=== PATIENT | female | born 1935 | race Two or more races ===

== ENCOUNTER 2019-03-04 03:03 | Inpatient (IN) | payer MEDICAID ==
[~2019-03-04] VITALS: Ht 157.5 cm; Wt 55.6 kg
[2019-03-04 05:26] LABS: Basophils # (auto) 0 uL; Basophils % (auto) 1.1 % (0.0-2.0); Eosinophils # (auto) 0.3 uL; Eosinophils % (auto) 7.4 % (0.0-7.0); Hematocrit 45.9 % (36.0-46.0); Hemoglobin 15.5 g/dL (12.2-16.2); Lymphocytes # (auto) 1.3 uL; Lymphocytes % (auto) 31.3 % (10.0-50.0); Mean Corpuscular Hemoglobin 29.6 pg (28.0-32.0); Mean Corpuscular Hgb Conc. 33.7 g/dL (32.0-36.0); Mean Corpuscular Volume 87.9 fL (80.0-100.0); Monocytes # (auto) 0.5 uL; Monocytes % (auto) 12.1 % (0.0-12.0); Neutrophils # (auto) 1.9 uL; Neutrophils % (auto) 48.1 % (37.0-80.0); Nucleated Red Blood Cells % 0.1 %; Platelet Count (auto) 134 10^3/uL (140-450); Red Blood Cells 5.22 10^6/uL (4.0-5.20); Red Cell Distribution Width 13.8 % (11.8-14.3)
[2019-03-04 05:42] LABS: Albumin 3.2 g/dL (3.4-5.0); BUN/Creatinine Ratio 28.8
[2019-03-04 05:46] LABS: Bilirubin, Total 0.8 mg/dL (0.2-1.0); Total Protein 7.8 g/dL (6.4-8.2)
[2019-03-04] MEDS ORDERED: SODIUM CHLORIDE 0.9% 500 ML IVB ONE (07:10)
[2019-03-04] MEDS ORDERED: DEXTROSE (50%) 50ML SYRG IV PRN (09:30)
[2019-03-04] MEDS ORDERED: ONDANSETRON HCL 4 MG/2 ML VIAL IV PRN (09:30)
[2019-03-04] MEDS ORDERED: ACETAMINOPHEN 500 MG TAB PO PRN (09:30)
[2019-03-04] MEDS ORDERED: NITROGLYCERIN 0.4 MG SL TAB SL PRN (09:30)
[2019-03-04] MEDS ORDERED: LABETALOL HCL 5 MG/ML ML 20ML VIAL IV PRN (09:30)
[2019-03-04] MEDS ORDERED: TEMAZEPAM 15 MG CAP PO PRN (09:30)
[2019-03-04] MEDS ORDERED: traMADol HCL 50 MG TAB PO PRN (09:30)
[2019-03-04] MEDS ORDERED: LACTULOSE 20Gm/30ML SOLN PO PRN (09:30)
[2019-03-04] MEDS ORDERED: ENOXAPARIN SOD 40 MG/0.4 ML SYRINGE SC SCH (10:00)
[2019-03-04] MEDS: SODIUM CHLORIDE 0.9% 1,000 ML IV SCH ×2 (10:04→11:56)
[2019-03-04 10:40] LABS: Folate (Folic Acid) 18.26 ng/mL (5.38-24)
--- NOTE | 2019-03-04 10:40 | NUR ---
Telemetry admit from ER IVISLAILA admitted to Telemetry unit with family at bedside, after SBAR received. Patient oriented to Ashley Jones, primary RN, unit, room, bed, and unit policies regarding patient care and visiting hours. Patient now on continuous telemetry monitoring, tele box #65 and telemetry reading on arrival to unit is Afib in the 50's. Patient weighed by bedscale and encouraged to call if they need something. Respirations are even and unlabored on RA. Bed locked in lowest position, side rails up x2, call light within reach. All questions and concerns addressed, patient verbalized understanding.
[2019-03-04 11:20] VITALS: BP 127/57
[2019-03-04] MEDS: InsuLIN REG 1unit/0.01ml Soln (100units/ml) SC SCH ×3 (11:30→21:56)
[2019-03-04] MEDS: ASPirin 81 mg TAB PO SCH (11:56)
[2019-03-04] MEDS: FAMOTIDINE 20 MG TAB PO SCH (11:56)
[2019-03-04] MEDS: ACCU-CHEK COMFORT CURVE STRIP VI SCH ×3 (11:57→21:53)
--- NOTE | 2019-03-04 12:40 | NUR ---
Dr. Donahue at bedside. Discussing plan of care with patient and family.
[2019-03-04] MEDS ORDERED: ASPI-378 PO (12:58)
[2019-03-04] MEDS ORDERED: HYDR25TA4 PO (12:58)
[2019-03-04] MEDS ORDERED: GABA300C10 PO (12:58)
[2019-03-04] MEDS ORDERED: LISI-646 PO (12:58)
[2019-03-04 13:00] VITALS: BP 119/44
--- NOTE | 2019-03-04 13:35 | NUR ---
Patient taken to stress lab for first part of stress test.
--- NOTE | 2019-03-04 14:15 | NUR ---
Patient back from stress lab. No distress noted.
[2019-03-04 17:00] VITALS: BP 112/72
--- NOTE | 2019-03-04 18:42 | NUR ---
Patient rounding Patient escorted to the bathroom and assisted back into bed. No S/S of distress or SOB, no pain noted or reported at this time. Will endorse care to reading recovery teacher RN.
--- NOTE | 2019-03-04 19:30 | NUR ---
Opening Shift Note Assumed care of patient, awake and alert oriented x4. No S/S of distress/SOB or pain noted. Bed is in lowest locked position with bed rails up x2 and call light is within reach of the patient. Instructed on POC and to call for assist PRN.
--- NOTE | 2019-03-04 19:40 | NUR ---
IV insertion Patient going for stress test tomorrow. Asked charge nurse if it was alright to place one iv instead of two since patient already has good 20 guage IV on right wrist. Said it was okay. IV access obtained, via clean sterile technique by inserting 22 gauge catheter at left wrist. IV secured properly. No trauma to site. Patient tolerated well.
--- NOTE | 2019-03-04 21:23 | NUR ---
Angel: Received call from telemetry monitory manufacturing technician that patients heart rate dips down to 42's but goes right back up frequently. Doctor Aida is aware of patients heart rate within 40's to 60's. Patient is asymptomatic, resting in bed with breaths even and unlabored. Addendum: 03/05/19 at 0305 by Danyelle Velasquez RN RN Title: Bradycardia
--- NOTE | 2019-03-04 21:40 | NUR ---
Urinalysis specimen sent. Patient resting in bed with breaths even and unlabored.
[2019-03-04] MEDS: ATORVASTATIN 20 MG TAB PO SCH (21:49)
[2019-03-04] MEDS: ENOXAPARIN SOD 40 MG/0.4 ML SYRINGE SC SCH (21:50)
[2019-03-04 22:00] VITALS: BP 144/61
[2019-03-04 23:50] LABS: Urine Bacteria NONE SEEN /hpf (None Seen); Urine Blood Negative /uL (Negative); Urine Specific Gravity 1.007 (1.001-1.035); Urine WBC 1 /hpf (0 - 5)
[2019-03-05 05:00] VITALS: BP 115/85
[2019-03-05] MEDS: ACCU-CHEK COMFORT CURVE STRIP VI SCH ×4 (06:21→22:00)
[2019-03-05] MEDS: InsuLIN REG 1unit/0.01ml Soln (100units/ml) SC SCH ×4 (06:21→22:00)
[2019-03-05 07:00] LABS: Basophils # (auto) 0.1 uL; Basophils % (auto) 1.4 % (0.0-2.0); Eosinophils # (auto) 0.1 uL; Eosinophils % (auto) 2.1 % (0.0-7.0); Hematocrit 46.9 % (36.0-46.0); Hemoglobin 15.6 g/dL (12.2-16.2); Lymphocytes # (auto) 1.1 uL; Lymphocytes % (auto) 25.8 % (10.0-50.0); Mean Corpuscular Hemoglobin 29.6 pg (28.0-32.0); Mean Corpuscular Hgb Conc. 33.3 g/dL (32.0-36.0); Mean Corpuscular Volume 88.8 fL (80.0-100.0); Monocytes # (auto) 0.4 uL; Monocytes % (auto) 9.7 % (0.0-12.0); Neutrophils # (auto) 2.6 uL; Nucleated Red Blood Cells % 0.1 %; Platelet Count (auto) 144 10^3/uL (140-450); Red Blood Cells 5.28 10^6/uL (4.0-5.20); Red Cell Distribution Width 13.5 % (11.8-14.3); White Blood Cell 4.2 10^3/uL (4.4-10.8)
[2019-03-05 07:12] LABS: Albumin 3.1 g/dL (3.4-5.0); Potassium 3.9 mmol/L (3.5-5.1)
--- NOTE | 2019-03-05 07:15 | NUR ---
Opening Note Report received from NOC RN. Patient observed awake, alert, but not oriented. Korean speaking only, assisted by Charley OLIVEIRA for translation. Patient reminded of POC, NPO, and stress test completion today. Patient nodded and assisted to restroom. Patient back to bed without complications. Call segundo within reach and notified to call for assistance. Bed alarm on to prevent fall.
[2019-03-05 07:17] LABS: BUN/Creatinine Ratio 24.2; Total Protein 7.4 g/dL (6.4-8.2)
[2019-03-05] MEDS ORDERED: ADENOSINE 45 MG in GIVE UN-DILUTED 0 ML IV STA (08:24)
[2019-03-05 09:00] VITALS: BP 138/65
[2019-03-05] MEDS: FAMOTIDINE 20 MG TAB PO SCH (09:31)
[2019-03-05] MEDS: ASPirin 81 mg TAB PO SCH (09:31)
[2019-03-05] MEDS: ENOXAPARIN SOD 40 MG/0.4 ML SYRINGE SC SCH ×2 (09:31→21:10)
--- NOTE | 2019-03-05 10:20 | NUR ---
Transported to Stress Test Patient taken to nuclear medicine by wheelchair, no signs or symptoms of distress at this time.
--- NOTE | 2019-03-05 10:59 | NUR ---
Back to room Patient back to room from stress test, no current S/S of distress noted.
[2019-03-05] MEDS: SODIUM CHLORIDE 0.9% 1,000 ML IV SCH ×2 (11:49→22:47)
[2019-03-05 13:00] VITALS: BP 132/60
--- NOTE | 2019-03-05 15:30 | NUR ---
IV pulled Patient pulled IV out of left wrist while daughter at bedside. IV site already stopped bleeding and IV sitting on bedside table with tip intact. Patient's wrist cleaned up and notified daughter to let patient know she should not touch her IV lines. If she has concerns about them, let staff know. Daughter concerned about new onset confusion, to be notified.
--- NOTE | 2019-03-05 16:30 | NUR ---
Rounded Dr. West rounded on patient and discussed that we are still awaiting stress test report from cardiology. Patient's daughter concerned about new onset confusion. MD ordering CT head and neurology consult. MD stated her afib has changed back to normal sinus rhythm and to obtain EKG to confirm. EKG obtained and shown to MD.
--- NOTE | 2019-03-05 19:28 | NUR ---
Closing Note Report given to NOC RN, patient currently without S/S of distress. Sitter at bedside. Caregiver visiting stated patient has been confused at home lately, this is not a new onset.
[2019-03-05 21:06] VITALS: BP 139/62
[2019-03-05] MEDS: ATORVASTATIN 20 MG TAB PO SCH (21:10)
[2019-03-06 04:11] VITALS: BP 148/76
[2019-03-06] MEDS: ACCU-CHEK COMFORT CURVE STRIP VI SCH ×4 (07:00→21:24)
[2019-03-06] MEDS: InsuLIN REG 1unit/0.01ml Soln (100units/ml) SC SCH ×4 (07:00→21:24)
--- NOTE | 2019-03-06 08:15 | NUR ---
Opening Note Assumed care of patient, she is A & O x 2, patient does not know the time or why she is here. POC discussed with patient. Cooperative and comfortable at this time. Patient states that she has some pain in her left foot, but does not want pain medications, will try a warm pack for patient. Bed is in low, locked position, call light within reach. Sitter at bedside. She ambulates with a walker and minimum assistance.
[2019-03-06 08:58] VITALS: BP 147/84
--- NOTE | 2019-03-06 09:45 | NUR ---
Patient family at bedside.
[2019-03-06] MEDS: ASPirin 81 mg TAB PO SCH (10:12)
[2019-03-06] MEDS: FAMOTIDINE 20 MG TAB PO SCH (10:12)
[2019-03-06] MEDS: ENOXAPARIN SOD 40 MG/0.4 ML SYRINGE SC SCH ×2 (10:13→21:23)
[2019-03-06] MEDS: SODIUM CHLORIDE 0.9% 1,000 ML IV SCH (11:54)
--- NOTE | 2019-03-06 12:21 | NUR ---
Dr. Bustillo at bedside. Would like EKG, Angiogram Friday. Dr. Bustillo called daughter Rahel to notify of the angiogram to take place Friday. Will follow through with orders per Dr. Bustillo. Will continue to monitor patient.
[2019-03-06 12:56] VITALS: BP 149/76
--- NOTE | 2019-03-06 13:55 | NUR ---
Follow-up EKG done and placed in patient chart as requested by Dr. Bustillo.
--- NOTE | 2019-03-06 14:53 | NUR ---
Report given to ELENI Tracy Patient transferred to Room 218B with all belongings. Family, Rahel, informed of transfer. No s/s of distress at time of transfer.
--- NOTE | 2019-03-06 15:00 | NUR ---
Transferred To 218B Patient transferred to room 218B. Received report from ELENI He. Patient lying in bed, shows no signs of distress at this time. Bed in lowest locked position, side rails up x2 and call light within reach. Sitter present at bedside. Will continue to monitor.
[2019-03-06 17:00] VITALS: BP 147/83
--- NOTE | 2019-03-06 19:03 | NUR ---
Closing Note Patient lying in bed, shows no signs of distress at this time. Care endorsed to NOC nurse.
--- NOTE | 2019-03-06 19:57 | NUR ---
Opening Shift Note Assumed care of patient, awake and alert. No S/S of distress/SOB or pain. Instructed on POC and to call for assist PRN, will continue to monitor for changes Q1hr and PRN.
[2019-03-06] MEDS: ATORVASTATIN 20 MG TAB PO SCH (21:23)
[2019-03-06 22:00] VITALS: BP 146/75
[2019-03-07] MEDS: SODIUM CHLORIDE 0.9% 1,000 ML IV SCH ×2 (01:39→16:47)
[2019-03-07 05:00] VITALS: BP 133/74
[2019-03-07] MEDS: ACCU-CHEK COMFORT CURVE STRIP VI SCH ×4 (06:24→22:02)
[2019-03-07] MEDS: InsuLIN REG 1unit/0.01ml Soln (100units/ml) SC SCH ×4 (06:24→22:00)
--- NOTE | 2019-03-07 07:16 | NUR ---
Report given to Shae Tracy, patient is resting no distress, sitter at bedside.
--- NOTE | 2019-03-07 07:20 | NUR ---
Open Shift Note Received report on patient, awake and sitting on side of bed. Patient shows no signs of distress at this time. Patient is aware of self, place and situation. Patient able to recall speaking with doctor yesterday about angiogram tomorrow. Discussed rest of POC with patient. Bed in lowest locked position, side rails up x2 and call light within reach. Sitter present at bedside. Will continue to monitor.
[2019-03-07 09:00] VITALS: BP 149/85
[2019-03-07] MEDS: ENOXAPARIN SOD 40 MG/0.4 ML SYRINGE SC SCH ×2 (10:05→22:02)
[2019-03-07] MEDS: ASPirin 81 mg TAB PO SCH (10:05)
[2019-03-07] MEDS: FAMOTIDINE 20 MG TAB PO SCH (10:05)
[2019-03-07 13:00] VITALS: BP 147/80
--- NOTE | 2019-03-07 15:24 | NUR ---
Nutrition Assessment Notes Please see attached link for complete assessment Est. Needs BW [id number] kcal (25-30 kcal/kgBW), 50-62 gms pro (1.0-1.2 gms/kgBW). Will continue to monitor pertinent labs and reassess nutrient need prn Addendum: 03/07/19 at [address] Amended: Links added.
[2019-03-07 17:04] VITALS: BP 149/72
[2019-03-07] MEDS ORDERED: LORazepam 2MG/ML-1ML VIAL IV PRN (17:15)
--- NOTE | 2019-03-07 18:55 | NUR ---
Closing Note Patient sitting up in bed, shows no signs of distress at this time. Bed in lowest locked position, side rails up x2 and call light within reach.
--- NOTE | 2019-03-07 19:20 | NUR ---
OPENING SHIFT NOTE Assumed care of patient who is awake, a&Ox3. Currently on room air with no s/s of SOB or distress. Denies pain at this time. Patient is ambulatory with the use of a standard walker and moderate assist. Bed is in low locked position with side rails up x2. Call light is within reach and sitter is at bedside for safety. Patient will be NPO after midnight for left heart cath tomorrow with Dr. Bustillo. Will continue to monitor for changes PRN.
--- NOTE | 2019-03-07 20:10 | NUR ---
Received call from [employer] [facility] reporting bradycardia at 37bpm. Patient is asymptomatic and HR has returned to 55. LA lead replaced. Will continue to monitor.
[2019-03-07] MEDS: ATORVASTATIN 20 MG TAB PO SCH (22:02)
--- NOTE | 2019-03-08 02:25 | NUR ---
PATIENT TRANSFERRED TO ROOM 285B FROM 218B. PATIENT IS ASLEEP. SITTER PRESENT IN ROOM. WILL CONTINUE TO MONITOR.
[2019-03-08] MEDS: SODIUM CHLORIDE 0.9% 1,000 ML IV SCH ×2 (04:22→13:17)
[2019-03-08 04:58] VITALS: BP 156/74
[2019-03-08 06:42] LABS: INR 0.99 (0.9-1.15); Partial Thromboplastin Time 31.3 sec (23.64-32.05)
[2019-03-08] MEDS: ASPirin 81 mg TAB PO SCH ×2 (06:48→09:52)
[2019-03-08] MEDS: InsuLIN REG 1unit/0.01ml Soln (100units/ml) SC SCH ×3 (06:48→17:00)
[2019-03-08] MEDS: ACCU-CHEK COMFORT CURVE STRIP VI SCH ×3 (06:49→17:24)
[2019-03-08 08:00] VITALS: BP 156/74
[2019-03-08] MEDS ORDERED: IODIXANOL 320MG/ML 100ML BTL IV ONE (08:57)
[2019-03-08] MEDS ORDERED: LIDOCAINE 2%HCL (LOCAL ANESTH.) INJ 20ML MDV ONE (08:57)
[2019-03-08] MEDS: ENOXAPARIN SOD 40 MG/0.4 ML SYRINGE SC SCH (09:53)
[2019-03-08] MEDS: FAMOTIDINE 20 MG TAB PO SCH (09:53)
[2019-03-08] MEDS ORDERED: ANGIOMAX 250 MG VIAL IV ONE ×2 (09:59→11:05)
[2019-03-08] MEDS ORDERED: MIDAZOLAM HCL 1MG/1ML-2 ML VIAL ONE (09:59)
[2019-03-08] MEDS ORDERED: fentaNYL CITRATE 100 MCG/2 ML VL ONE (09:59)
[2019-03-08] MEDS ORDERED: SODIUM CHL 0.9% 0 ML ONE (10:00)
[2019-03-08] MEDS ORDERED: HEPARIN 1,000 UNITS/ml 1ML VIAL ONE (10:37)
[2019-03-08] MEDS ORDERED: VERAPAMIL 2.5MG/ML INJ 2ML VIAL IV ONE (10:37)
[2019-03-08] MEDS ORDERED: NITROGLYCERIN 5MG/ML 10ML VIAL IV ONE (10:38)
[2019-03-08] MEDS ORDERED: HEPARIN SODIUM (PORCINE) 5000 UNITS/ML 1ML VIAL ONE (10:53)
[2019-03-08 12:15] VITALS: BP 140/62
--- NOTE | 2019-03-08 14:55 | NUR ---
ELECTROENCEPHALOGRAM COMPLETED AT BEDSIDE. ELENI CLAUDIO NOTIFIED.
[2019-03-08 18:29] VITALS: BP 140/62
--- NOTE | 2019-03-08 18:54 | NUR ---
PATIENT DISCHARGED HOME WITH FAMILY. ALL IV ACCESS DISCONTINUED. TELEMETRY REMOVED AND RETURNED TO TELEMETRY DEPARTMENT. ALL DISCHARGE INSTRUCTIONS GIVEN. ALL DISCHARGE PAPERWORK SIGNED.
--- NOTE | 2019-03-09 10:24 | NUR ---
assessment Patient discharged home prior to assessment. Addendum: 03/09/19 at 1425 by Violeta SALGADO Amended: Links added.
== END 2019-03-08 19:00 | disposition home or self-care (01) | DRG 192 ==
LOC: EDBD 03:03 → ER 03:07 → TELE-WESTW 03:08 → TELE-CENTR 03-06 16:07 → TELE-WESTW 03-08 01:59
PROVIDERS: ADMIT Internal Medicine; ATTEND Internal Medicine Pulmonary Disease
PROC: 4A023N7 Measurement of Cardiac Sampling and Pressure, Left Heart, Percutaneous Approach (ICD-10-PCS; principal; 2019-03-08)
PROC: B2111ZZ Fluoroscopy of Multiple Coronary Arteries using Low Osmolar Contrast (ICD-10-PCS; 2019-03-08)
PROC: B2151ZZ Fluoroscopy of Left Heart using Low Osmolar Contrast (ICD-10-PCS; 2019-03-08)
DX: R00.1 Bradycardia, unspecified (principal); I21.A1 Myocardial infarction type 2; G93.41 Metabolic encephalopathy; D69.6 Thrombocytopenia, unspecified; E11.9 Type 2 diabetes mellitus without complications; I48.91 Unspecified atrial fibrillation; I10 Essential (primary) hypertension; F03.90 Unspecified dementia, unspecified severity, without behavioral disturbance, psychotic disturbance, mood disturbance, and anxiety; I35.1 Nonrheumatic aortic (valve) insufficiency; Z83.3 Family history of diabetes mellitus; Z90.49 Acquired absence of other specified parts of digestive tract; Z88.5 Allergy status to narcotic agent
CPT/HCPCS: 36415; 70450; 70551; 71045; 74176; 78452; 80053; 81001; 82550; 82607; 82746; 82962; 83036; 83605; 83690; 83880; 84443; 84484; 85025; 85610; 85652; 85730; 87040; 93005; 93017; 93306; 93458; 95819; 99152; G0378; J0153; J1815; J2250; J3490; Q9967

== ENCOUNTER 2019-11-23 01:53 | Emergency (ER) | payer MEDICAID ==
[~2019-11-23] VITALS: Ht 152.4 cm; Wt 70.3 kg
[~2019-11-23 01:53] MED LIST: ASPI-378 PO; GABA300C10 PO; HYDR25TA4 PO; LISI-646 PO
[2019-11-23] MEDS ORDERED: LORazepam 0.5 MG TAB PO ONE (02:30)
[2019-11-23 02:52] LABS: Basophils # (auto) 0 10 ^3/uL (0-0.2); Basophils % (auto) 0.9 % (0.0-2.0); Eosinophils # (auto) 0.2 10 ^3/uL (0-0.8); Eosinophils % (auto) 4.5 % (0.0-7.0); Hematocrit 47.3 % (36.0-46.0); Hemoglobin 15.6 g/dL (12.2-16.2); Lymphocytes % (auto) 23.8 % (10.0-50.0); Mean Corpuscular Hemoglobin 29.3 pg (28.0-32.0); Mean Corpuscular Volume 88.8 fL (80.0-100.0); Monocytes # (auto) 0.4 10 ^3/uL (0-1.3); Monocytes % (auto) 9.6 % (0.0-12.0); Neutrophils # (auto) 2.5 10 ^3/uL (1.6-8.6); Neutrophils % (auto) 61.2 % (37.0-80.0); Nucleated Red Blood Cells % 0.6 %; Platelet Count (auto) 136 10^3/uL (140-450); Red Blood Cells 5.33 10^6/uL (4.0-5.20); Red Cell Distribution Width 13.6 % (11.8-14.3); White Blood Cell 4.1 10^3/uL (4.4-10.8)
[2019-11-23 03:07] LABS: Urine Bacteria NONE SEEN /hpf (None Seen); Urine Blood Negative /uL (Negative); Urine Specific Gravity 1.005 (1.001-1.035); Urine WBC <1 /hpf (0 - 5)
[2019-11-23 03:12] LABS: Albumin 3.4 g/dL (3.4-5.0); BUN/Creatinine Ratio 33.3; Calcium 8.9 mg/dL (8.5-10.1); Potassium 3.9 mmol/L (3.5-5.1)
[2019-11-23 03:15] LABS: Bilirubin, Total 0.8 mg/dL (0.2-1.0); Total Protein 8.1 g/dL (6.4-8.2)
[2019-11-23 04:47] VITALS: BP 167/67
== END 2019-11-23 04:55 | disposition home or self-care (01) ==
LOC: EDBD 01:53 → ER 01:53
DX: G47.00 Insomnia, unspecified (principal); I10 Essential (primary) hypertension; E11.9 Type 2 diabetes mellitus without complications
CPT/HCPCS: 36415; 71045; 80053; 81001; 85025; 93005

== ENCOUNTER 2020-08-31 03:11 | Inpatient (IN) | payer MEDICAID ==
[~2020-08-31] VITALS: Ht 152.4 cm; Wt 50.9 kg
[2020-08-31 06:49] LABS: Basophils # (auto) 0 10 ^3/uL (0-0.2); Basophils % (auto) 0.9 % (0.0-2.0); Eosinophils # (auto) 0.1 10 ^3/uL (0-0.8); Eosinophils % (auto) 4.5 % (0.0-7.0); Hematocrit 40.9 % (36.0-46.0); Lymphocytes # (auto) 0.8 10 ^3/uL (0.4-5.4); Mean Corpuscular Hemoglobin 30.8 pg (28.0-32.0); Mean Corpuscular Hgb Conc. 34.3 g/dL (32.0-36.0); Mean Corpuscular Volume 89.8 fL (80.0-100.0); Monocytes # (auto) 0.4 10 ^3/uL (0-1.3); Monocytes % (auto) 12.1 % (0.0-12.0); Neutrophils # (auto) 1.8 10 ^3/uL (1.6-8.6); Neutrophils % (auto) 57.5 % (37.0-80.0); Nucleated Red Blood Cells % 0.2 %; Platelet Count (auto) 118 10^3/uL (140-450); Red Blood Cells 4.55 10^6/uL (4.0-5.20); White Blood Cell 3.1 10^3/uL (4.4-10.8)
[2020-08-31 07:03] LABS: Albumin 3.1 g/dL (3.4-5.0); BUN/Creatinine Ratio 38.3; Calcium 8.6 mg/dL (8.5-10.1); Potassium 3.6 mmol/L (3.5-5.1)
[2020-08-31 07:11] LABS: Bilirubin, Total 0.7 mg/dL (0.2-1.0); Total Protein 7.2 g/dL (6.4-8.2)
[2020-08-31] MEDS ORDERED: hydrALAZINE HCL 20 MG/ML VL IV PRN (09:30)
[2020-08-31] MEDS ORDERED: ASPirin 81 mg TAB PO ONE (09:30)
[2020-08-31] MEDS ORDERED: ONDANSETRON HCL 4 MG/2 ML VIAL IV PRN (09:30)
[2020-08-31] MEDS ORDERED: ACETAMINOPHEN 500 MG TAB PO PRN (09:30)
[2020-08-31] MEDS ORDERED: DEXTROSE (50%) 50ML SYRG IV PRN (09:30)
[2020-08-31] MEDS ORDERED: HYDROcodone-ACET 5/325MG TAB PO PRN (09:30)
[2020-08-31] MEDS ORDERED: NITROGLYCERIN 0.4 MG SL TAB SL PRN (09:30)
[2020-08-31] MEDS ORDERED: FAMOTIDINE 20 MG TAB PO SCH (10:00)
[2020-08-31] MEDS ORDERED: ASPirin-EC 81 mg tab PO SCH (10:00)
[2020-08-31] MEDS: DOCUSATE SOD 100 MG CAP PO SCH ×2 (10:13→21:34)
[2020-08-31] MEDS: LISINOPRIL 10 MG TAB PO SCH (10:13)
[2020-08-31] MEDS: FAMOTIDINE 20 MG TAB PO SCH (10:13)
[2020-08-31] MEDS: InsuLIN REG 1unit/0.01ml Soln (100units/ml) SC SCH ×3 (11:30→21:34)
[2020-08-31] MEDS: ACCU-CHEK COMFORT CURVE STRIP VI SCH ×3 (11:46→21:34)
[2020-08-31 11:48] VITALS: BP 139/68
[2020-08-31 12:55] VITALS: BP 131/59
[2020-08-31 17:00] VITALS: BP 149/72
[2020-08-31] MEDS: ATORVASTATIN 20 MG TAB PO SCH (21:34)
[2020-08-31 21:40] LABS: Urine Bacteria NONE SEEN /hpf (None Seen); Urine Blood Negative /uL (Negative); Urine Specific Gravity 1.013 (1.001-1.035); Urine WBC 1 /hpf (0 - 5)
[2020-08-31 22:00] VITALS: BP 135/75
[2020-08-31 23:30] VITALS: BP 144/77
[2020-09-01 05:00] VITALS: BP 135/92
[2020-09-01] MEDS: InsuLIN REG 1unit/0.01ml Soln (100units/ml) SC SCH ×4 (06:26→22:36)
[2020-09-01] MEDS: ACCU-CHEK COMFORT CURVE STRIP VI SCH ×4 (06:27→22:35)
[2020-09-01 07:03] LABS: Calcium 8.5 mg/dL (8.5-10.1); Potassium 3.7 mmol/L (3.5-5.1)
[2020-09-01 07:19] LABS: INR 1.03 (0.9-1.15); Partial Thromboplastin Time 28.3 sec (23.0-31.2)
[2020-09-01 07:28] LABS: Basophils # (auto) 0 10 ^3/uL (0-0.2); Basophils % (auto) 0.6 % (0.0-2.0); Eosinophils # (auto) 0 10 ^3/uL (0-0.8); Eosinophils % (auto) 0.8 % (0.0-7.0); Lymphocytes # (auto) 0.7 10 ^3/uL (0.4-5.4); Lymphocytes % (auto) 13.6 % (10.0-50.0); Mean Corpuscular Hemoglobin 30.5 pg (28.0-32.0); Mean Corpuscular Hgb Conc. 34.2 g/dL (32.0-36.0); Mean Corpuscular Volume 89.3 fL (80.0-100.0); Monocytes # (auto) 0.5 10 ^3/uL (0-1.3); Monocytes % (auto) 8.7 % (0.0-12.0); Neutrophils # (auto) 4.2 10 ^3/uL (1.6-8.6); Neutrophils % (auto) 76.3 % (37.0-80.0); Nucleated Red Blood Cells % 0.5 %; Platelet Count (auto) 155 10^3/uL (140-450); Red Blood Cells 4.92 10^6/uL (4.0-5.20); Red Cell Distribution Width 12.6 % (11.8-14.3); White Blood Cell 5.4 10^3/uL (4.4-10.8)
[2020-09-01 09:00] VITALS: BP 146/77
[2020-09-01] MEDS: ASPirin-EC 81 mg tab PO SCH (09:31)
[2020-09-01] MEDS: DOCUSATE SOD 100 MG CAP PO SCH ×2 (09:31→22:37)
[2020-09-01] MEDS: FAMOTIDINE 20 MG TAB PO SCH (09:31)
[2020-09-01] MEDS: LISINOPRIL 10 MG TAB PO SCH (09:32)
[2020-09-01] MEDS ORDERED: FAMOTIDINE 20 MG TAB PO SCH (10:00)
[2020-09-01 13:00] VITALS: BP 147/97
[2020-09-01 17:00] VITALS: BP 174/70
[2020-09-01 18:50] VITALS: BP 148/72
[2020-09-01 22:23] VITALS: BP 115/56
[2020-09-01] MEDS: ATORVASTATIN 20 MG TAB PO SCH (22:37)
[2020-09-02 05:05] VITALS: BP 113/50
[2020-09-02] MEDS: InsuLIN REG 1unit/0.01ml Soln (100units/ml) SC SCH ×4 (06:38→21:40)
[2020-09-02] MEDS: ACCU-CHEK COMFORT CURVE STRIP VI SCH ×4 (06:38→21:40)
[2020-09-02 08:22] VITALS: BP 120/65
[2020-09-02] MEDS: DOCUSATE SOD 100 MG CAP PO SCH ×2 (09:47→22:00)
[2020-09-02] MEDS: ASPirin-EC 81 mg tab PO SCH (09:47)
[2020-09-02] MEDS: FAMOTIDINE 20 MG TAB PO SCH (09:48)
[2020-09-02] MEDS: LISINOPRIL 10 MG TAB PO SCH (09:48)
[2020-09-02 12:57] VITALS: BP 134/66
[2020-09-02 21:14] VITALS: BP 139/75
[2020-09-02] MEDS: ATORVASTATIN 20 MG TAB PO SCH (22:00)
[2020-09-03 05:16] VITALS: BP 128/60
[2020-09-03] MEDS: ACCU-CHEK COMFORT CURVE STRIP VI SCH ×4 (06:24→21:18)
[2020-09-03] MEDS: InsuLIN REG 1unit/0.01ml Soln (100units/ml) SC SCH ×4 (06:25→21:18)
[2020-09-03 09:00] VITALS: BP 125/78
[2020-09-03] MEDS: ASPirin-EC 81 mg tab PO SCH (10:00)
[2020-09-03] MEDS: FAMOTIDINE 20 MG TAB PO SCH (10:00)
[2020-09-03] MEDS: DOCUSATE SOD 100 MG CAP PO SCH ×2 (10:00→21:19)
[2020-09-03] MEDS: LISINOPRIL 10 MG TAB PO SCH (10:00)
[2020-09-03 13:00] VITALS: BP 127/70
[2020-09-03 17:00] VITALS: BP 131/74
[2020-09-03] MEDS: ATORVASTATIN 20 MG TAB PO SCH (21:19)
[2020-09-03 22:00] VITALS: BP 121/68
[2020-09-04 05:00] VITALS: BP 143/61
[2020-09-04] MEDS: ACCU-CHEK COMFORT CURVE STRIP VI SCH ×4 (05:50→21:03)
[2020-09-04] MEDS: InsuLIN REG 1unit/0.01ml Soln (100units/ml) SC SCH ×4 (05:50→21:02)
[2020-09-04 09:00] VITALS: BP 122/77
[2020-09-04] MEDS: ASPirin-EC 81 mg tab PO SCH (09:15)
[2020-09-04] MEDS: FAMOTIDINE 20 MG TAB PO SCH (09:15)
[2020-09-04] MEDS: DOCUSATE SOD 100 MG CAP PO SCH ×2 (09:16→21:02)
[2020-09-04] MEDS: LISINOPRIL 10 MG TAB PO SCH (09:16)
[2020-09-04 12:36] VITALS: BP 136/92
[2020-09-04 16:49] VITALS: BP 148/87
[2020-09-04] MEDS: ATORVASTATIN 20 MG TAB PO SCH (21:03)
[2020-09-04 22:00] VITALS: BP 133/70
[2020-09-05 05:00] VITALS: BP 132/63
[2020-09-05] MEDS: ACCU-CHEK COMFORT CURVE STRIP VI SCH ×2 (05:40→11:30)
[2020-09-05] MEDS: InsuLIN REG 1unit/0.01ml Soln (100units/ml) SC SCH ×2 (05:40→11:30)
[2020-09-05 08:41] VITALS: BP 128/76
[2020-09-05] MEDS: ASPirin-EC 81 mg tab PO SCH (09:20)
[2020-09-05] MEDS: FAMOTIDINE 20 MG TAB PO SCH (09:21)
[2020-09-05] MEDS: DOCUSATE SOD 100 MG CAP PO SCH (09:21)
[2020-09-05] MEDS: LISINOPRIL 10 MG TAB PO SCH (09:21)
[2020-09-05 11:54] VITALS: BP 128/76
[2020-09-05 12:21] VITALS: BP 152/81
== END 2020-09-05 13:36 | disposition home or self-care (01) | DRG 190 ==
LOC: EDBD 03:11 → ER 03:13 → TELE 03:14 → TELE-CENTR 10:43 → TELE-WESTW 21:46
PROVIDERS: ADMIT Nurse Practitioner Acute Care; ATTEND Family Medicine
DX: I21.4 Non-ST elevation (NSTEMI) myocardial infarction (principal); D69.6 Thrombocytopenia, unspecified; E44.1 Mild protein-calorie malnutrition; I48.0 Paroxysmal atrial fibrillation; E11.9 Type 2 diabetes mellitus without complications; D72.819 Decreased white blood cell count, unspecified; R00.1 Bradycardia, unspecified; I35.1 Nonrheumatic aortic (valve) insufficiency; Z20.822 Contact with and (suspected) exposure to COVID-19; I44.0 Atrioventricular block, first degree; I10 Essential (primary) hypertension; E78.00 Pure hypercholesterolemia, unspecified; Z79.84 Long term (current) use of oral hypoglycemic drugs; Z88.5 Allergy status to narcotic agent
CPT/HCPCS: 36415; 70450; 71045; 80048; 80053; 81001; 82962; 83036; 84484; 85025; 85610; 85730; 86141; 87426; 93005; 93017; 93306; 99291; G0378; J1815; J2405

== ENCOUNTER 2020-09-12 16:25 | Inpatient (IN) | payer MEDICAID ==
[~2020-09-12] VITALS: Ht 165.1 cm; Wt 48.2 kg
[~2020-09-12 16:25] MED LIST changes: -LISI-646 PO; +LISI20TA28 PO
[2020-09-12 17:24] LABS: Basophils # (auto) 0 10 ^3/uL (0-0.2); Basophils % (auto) 0.8 % (0.0-2.0); Eosinophils # (auto) 0.2 10 ^3/uL (0-0.8); Eosinophils % (auto) 3.6 % (0.0-7.0); Hematocrit 45.2 % (36.0-46.0); Hemoglobin 15.1 g/dL (12.2-16.2); Mean Corpuscular Hemoglobin 30.3 pg (28.0-32.0); Mean Corpuscular Hgb Conc. 33.3 g/dL (32.0-36.0); Monocytes # (auto) 0.5 10 ^3/uL (0-1.3); Monocytes % (auto) 10.2 % (0.0-12.0); Neutrophils # (auto) 3.5 10 ^3/uL (1.6-8.6); Neutrophils % (auto) 66.4 % (37.0-80.0); Nucleated Red Blood Cells % 0.1 %; Platelet Count (auto) 162 10^3/uL (140-450); Red Blood Cells 4.97 10^6/uL (4.0-5.20); Red Cell Distribution Width 13.1 % (11.8-14.3); White Blood Cell 5.3 10^3/uL (4.4-10.8)
[2020-09-12 17:28] LABS: Urine Bacteria NONE SEEN /hpf (None Seen); Urine Blood Negative /uL (Negative); Urine Specific Gravity 1.021 (1.001-1.035); Urine WBC <1 /hpf (0 - 5)
[2020-09-12 17:46] LABS: Albumin 3.2 g/dL (3.4-5.0); BUN/Creatinine Ratio 45.6; Calcium 9.1 mg/dL (8.5-10.1); Magnesium 2.1 mg/dL (1.6-2.6)
[2020-09-12 17:50] LABS: Bilirubin, Total 0.4 mg/dL (0.2-1.0); Total Protein 7.9 g/dL (6.4-8.2)
[2020-09-12] MEDS ORDERED: ALBUTEROL SULF 2.5 MG/0.5ML(0.5%) NEB SOLN NEB PRN (21:00)
[2020-09-12] MEDS ORDERED: DEXTROSE (50%) 50ML SYRG IV PRN (21:00)
[2020-09-12] MEDS ORDERED: MORPHINE SULF INJ 2 MG/ML SYRINGE 1ML IV PRN (21:00)
[2020-09-12] MEDS ORDERED: ACETAMINOPHEN 325 MG TAB PO PRN (21:00)
[2020-09-12] MEDS ORDERED: ONDANSETRON HCL 4 MG/2 ML VIAL IV PRN (21:00)
[2020-09-12] MEDS ORDERED: NITROGLYCERIN 0.4 MG SL TAB SL PRN (21:00)
[2020-09-12] MEDS ORDERED: IOHEXOL 350 MG/ML 100ML IJ ONE (21:19)
[2020-09-12 21:21] VITALS: BP 123/56
[2020-09-12] MEDS ORDERED: TEMAZEPAM 15 MG CAP PO PRN (22:00)
[2020-09-12] MEDS: ATORVASTATIN 20 MG TAB PO SCH (22:46)
[2020-09-12] MEDS: GABAPENTIN 300 MG CAP PO SCH (22:47)
[2020-09-12] MEDS: ACCU-CHEK COMFORT CURVE STRIP VI SCH (22:47)
[2020-09-12] MEDS: InsuLIN REG 1unit/0.01ml Soln (100units/ml) SC SCH (22:47)
[2020-09-12] MEDS: ENOXAPARIN SOD 40 MG/0.4 ML SYRINGE SC SCH (22:47)
[2020-09-12 23:50] VITALS: BP 146/58
[2020-09-13 00:16] VITALS: BP 146/58
[2020-09-13 05:00] VITALS: BP 105/52
[2020-09-13] MEDS: InsuLIN REG 1unit/0.01ml Soln (100units/ml) SC SCH ×4 (06:00→22:00)
[2020-09-13] MEDS: ACCU-CHEK COMFORT CURVE STRIP VI SCH ×4 (06:00→21:51)
[2020-09-13 06:01] LABS: Basophils # (auto) 0 10 ^3/uL (0-0.2); Basophils % (auto) 0.9 % (0.0-2.0); Eosinophils # (auto) 0.2 10 ^3/uL (0-0.8); Eosinophils % (auto) 5.6 % (0.0-7.0); Hematocrit 41.1 % (36.0-46.0); Hemoglobin 13.9 g/dL (12.2-16.2); Lymphocytes # (auto) 0.9 10 ^3/uL (0.4-5.4); Lymphocytes % (auto) 21.5 % (10.0-50.0); Mean Corpuscular Hemoglobin 30.5 pg (28.0-32.0); Mean Corpuscular Hgb Conc. 33.8 g/dL (32.0-36.0); Mean Corpuscular Volume 90.3 fL (80.0-100.0); Monocytes # (auto) 0.6 10 ^3/uL (0-1.3); Monocytes % (auto) 12.8 % (0.0-12.0); Neutrophils # (auto) 2.6 10 ^3/uL (1.6-8.6); Neutrophils % (auto) 59.2 % (37.0-80.0); Nucleated Red Blood Cells % 0.1 %; Platelet Count (auto) 136 10^3/uL (140-450); Red Blood Cells 4.55 10^6/uL (4.0-5.20); Red Cell Distribution Width 13.1 % (11.8-14.3); White Blood Cell 4.4 10^3/uL (4.4-10.8)
[2020-09-13 06:16] LABS: Albumin 2.7 g/dL (3.4-5.0); Calcium 8.5 mg/dL (8.5-10.1); Potassium 3.9 mmol/L (3.5-5.1)
[2020-09-13 06:21] LABS: BUN/Creatinine Ratio 50.9; Bilirubin, Total 0.6 mg/dL (0.2-1.0); Total Protein 6.5 g/dL (6.4-8.2)
[2020-09-13 09:00] VITALS: BP 127/62
[2020-09-13] MEDS: HCTZ 25 MG TAB PO SCH (10:54)
[2020-09-13] MEDS: GABAPENTIN 300 MG CAP PO SCH ×2 (10:54→21:51)
[2020-09-13] MEDS: ASPirin 81 mg TAB PO SCH (10:54)
[2020-09-13] MEDS: LISINOPRIL 10 MG TAB PO SCH (10:55)
[2020-09-13] MEDS: FAMOTIDINE 20 MG TAB PO SCH (10:55)
[2020-09-13 13:00] VITALS: BP 100/61
[2020-09-13] MEDS ORDERED: [UNRECOGNIZED DRUG - CODE] PO (18:38)
[2020-09-13] MEDS: ENOXAPARIN SOD 40 MG/0.4 ML SYRINGE SC SCH (21:51)
[2020-09-13] MEDS: ATORVASTATIN 20 MG TAB PO SCH (21:51)
[2020-09-13 22:00] VITALS: BP 140/68
[2020-09-14 05:00] VITALS: BP 136/65
[2020-09-14] MEDS: InsuLIN REG 1unit/0.01ml Soln (100units/ml) SC SCH ×2 (06:11→11:30)
[2020-09-14] MEDS: ACCU-CHEK COMFORT CURVE STRIP VI SCH ×2 (06:12→11:38)
[2020-09-14 09:00] VITALS: BP 108/51
[2020-09-14] MEDS: LISINOPRIL 10 MG TAB PO SCH (10:00)
[2020-09-14] MEDS: HCTZ 25 MG TAB PO SCH (10:00)
[2020-09-14 10:48] VITALS: BP 108/57
[2020-09-14] MEDS: GABAPENTIN 300 MG CAP PO SCH (11:17)
[2020-09-14] MEDS: ASPirin 81 mg TAB PO SCH (11:17)
[2020-09-14] MEDS: FAMOTIDINE 20 MG TAB PO SCH (11:17)
== END 2020-09-14 14:30 | disposition home or self-care (01) | DRG 190 ==
LOC: ER 16:25 → TELE 20:54 → TELE-WESTW 23:26
PROVIDERS: ADMIT Nurse Practitioner; ATTEND Family Medicine
DX: R07.89 Other chest pain (principal); I21.4 Non-ST elevation (NSTEMI) myocardial infarction; E11.9 Type 2 diabetes mellitus without complications; E44.1 Mild protein-calorie malnutrition; I10 Essential (primary) hypertension; E78.00 Pure hypercholesterolemia, unspecified; Z20.822 Contact with and (suspected) exposure to COVID-19; Z83.3 Family history of diabetes mellitus; R79.89 Other specified abnormal findings of blood chemistry; Z88.5 Allergy status to narcotic agent; Z90.49 Acquired absence of other specified parts of digestive tract; R09.02 Hypoxemia
CPT/HCPCS: 36415; 71045; 71275; 72128; 72131; 80053; 81001; 82962; 83605; 83735; 83880; 84484; 85025; 85379; 87040; 87081; 87426; 93005; 93970; 94640; G0378; J1815